=== PATIENT | female | born 1950 | race Hispanic/Latino ===

== ENCOUNTER 2021-02-11 03:48 | Emergency (ER) | payer MEDICARE ==
[2021-02-11] MEDS ORDERED: TETRACAINE 0.5% OPHTH SOLN 4ML OD ONE (08:43)
[2021-02-11] MEDS ORDERED: FLUORESCEIN 1 MG STRIP OP ONE (08:44)
--- NOTE | 2021-02-11 09:44 | Emergency Department Report ---
ED Eye Problem HPI - General Chief complaint: Eye Problems Stated complaint: SOMETHING IN RT EYE Time Seen by Provider: 02/11/21 08:42 Source: patient Mode of arrival: Ambulatory Limitations: No Limitations - History of Present Illness Initial comments: 70-year-old female states around 4 PM yesterday she was removing shrubs and debris flew into her right eye. Since then she is complaining of right eye pain. She has eyedrops from a previous eye infection she has been using. Patient awake alert and oriented in no acute distress with no other complaints MD chief complaint: eye pain, eye injury -: Sudden (4 PM yesterday) Onset Description: sudden Location: right eye Place: home If Injury: other (Yard debris) Eye Symptoms: pain, foreign body sensation Severity: moderate If Pain, Quality: aching Consistency: constant Associated Symptoms: none Treatments Prior to Arrival: OTC eye drops, other (Prescribed polymyxin eyedrops) - Related Data Previous Rx's Medication Instructions Recorded Last Taken Type Polymyxin B Sulf/Trimethoprim 1 drop OP QID #1 bottle 02/11/21 Unknown Rx [Polytrim Eye Drops [id number]/0.1%] Allergies Allergy/AdvReac Type Severity Reaction Status Date / Time Sulfa (Sulfonamide Allergy Rash Verified 02/11/21 06:22 Antibiotics) ED Review of Systems ROS: Stated complaint: SOMETHING IN RT EYE Other details as noted in HPI Comment: All other systems reviewed and negative Constitutional: no symptoms reported Eyes: eye pain, eye discharge. denies: vision change ENT: as per HPI. denies: ear pain, throat pain, dental pain Respiratory: no symptoms reported. denies: cough, orthopnea, shortness of breath, SOB with exertion Cardiovascular: denies: chest pain, palpitations, dyspnea on exertion Endocrine: no symptoms reported Gastrointestinal: as per HPI Musculoskeletal: denies: as per HPI Skin: denies: as per HPI Neurological: denies: as per HPI ED Past Medical Hx - Past Medical History Previous Medical History?: Yes Hx Hypertension: Yes Hx Diabetes: Yes Additional medical history: Frozen Right Shoulder - Surgical History Past Surgical History?: Yes Additional Surgical History: Hysterectomy. Left knee surgery - Social History Smoking Status: Never Smoker Substance Use Type: None - Medications Home Medications: Home Medications Medication Instructions Recorded Confirmed Last Taken Type Polymyxin B Sulf/Trimethoprim 1 drop OP QID #1 bottle 02/11/21 Unknown Rx [Polytrim Eye Drops [id number]/0.1%] ED Physical Exam - General Limitations: No Limitations General appearance: alert, in no apparent distress - Eye Eye exam: Present: PERRL, EOMI. Absent: conjunctival injection Pupils: Present: normal accommodation, other (Right periorbital redness) - ENT ENT exam: Present: normal exam, TM's normal bilaterally - Neck Neck exam: Present: normal inspection - Cardiovascular Cardiovascular Exam: Present: regular rate, normal heart sounds - Extremities Exam Extremities exam: Present: normal inspection - Back Exam Back exam: Present: normal inspection - Neurological Exam Neurological exam: Present: alert, oriented X3 - Psychiatric Psychiatric exam: Present: normal affect - Skin Skin exam: Present: warm, dry, intact ED Course Vital Signs 02/11/21 06:14 Temperature 98.6 F Pulse Rate 85 Respiratory 18 Rate Blood Pressure 154/70 O2 Sat by Pulse 100 Oximetry - Reevaluation(s) Reevaluation #1: 02/11/21 09:43 Patient doing well tolerated eye exam well - Eye Procedure Alcaine Drops Administered: Yes (1 drop to the right eye) Eye Irrigated w/ Saline (ccs): 30 Cyclogel 2 Drops Administered: right eye Progress: Right eye tetracaine 1 drop placed. Then stained with fluorescein. Right eye examined with Chaparro lamp. Corneal abrasion noted at 6:00. Right eye rinse with 30 cc of normal saline ED Medical Decision Making - Medical Decision Making 70-year-old female while doing yard work debris flew into her right eyes she is complaining of right eye pain redness around the right eye and clear discharge she has polymyxin B at home she started using that with no improvement she has foreign body sensation. Upon examination with Chaparro lamp is noted that patient has a small corneal abrasion. Plan is for patient to continue with polymyxin B for the next 3 to 5 days and follow-up with an eye doctor. Critical Care Time: No Critical care attestation.: If time is entered above; I have spent that time in minutes in the direct care of this critically ill patient, excluding procedure time. ED Disposition Clinical Impression: Injury of conjunctiva and corneal abrasion of right eye w/o FB Qualifiers: Encounter type: initial encounter Qualified Code(s): S05.01XA - Injury of conjunctiva and corneal abrasion without foreign body, right eye, initial encounter Disposition: DC-01 TO HOME OR SELFCARE Is pt being admited?: No Does the pt Need Aspirin: No Condition: Stable Instructions: Corneal Abrasion, [id number] Additional Instructions: Patient discharged home to self-care and follow-up with her eye doctor she is to continue to use polymyxin B eyedrops every four times a day for 3 to 5 days. Please return to the emergency room for any worsening symptoms such as loss of vision or increasing eye pain Prescriptions: Polymyxin B Sulf/Trimethoprim [Polytrim Eye Drops [id number]/0.1%] 1 drop OP QID #1 bottle Referrals: PRIMARY CARE, [Primary Care Provider] - 3-5 Days RAMOS BERRIOS MD [Staff Physician] - 3-5 Days Time of Disposition: 09:49
[2021-02-11 09:59] VITALS: BP 144/79
== END 2021-02-11 09:59 | disposition home or self-care (01) ==
LOC: ED 03:48
DX: S05.01XA Injury of conjunctiva and corneal abrasion without foreign body, right eye, initial encounter (principal); I10 Essential (primary) hypertension; E11.9 Type 2 diabetes mellitus without complications; Z88.2 Allergy status to sulfonamides; Z79.899 Other long term (current) drug therapy; Z90.710 Acquired absence of both cervix and uterus; Z98.890 Other specified postprocedural states; X58.XXXA Exposure to other specified factors, initial encounter; Y93.89 Activity, other specified; Y92.099 Unspecified place in other non-institutional residence as the place of occurrence of the external cause; Y99.8 Other external cause status